=== PATIENT | male | born 1950 | race African-American/Black ===

== ENCOUNTER 2018-12-27 04:48 | Emergency (ER) | payer OTHER, MEDICARE ==
[~2018-12-27] VITALS: Ht 180.3 cm; Wt 95.3 kg
[2018-12-27] MEDS ORDERED: IV NORMAL SALINE 1,000ML 1,000 ML IV SCH (05:15)
[2018-12-27] MEDS ORDERED: PANTOPRAZOLE IV 40 MG VIAL. IVP ONE (05:15)
--- NOTE | 2018-12-27 05:36 | PHYS DOC ---
Adult General Chief Complaint Chief Complaint: BLOODY STOOL HPI HPI Patient is a 68-year-old -[place] gentleman who presents with acute rectal bleeding that started at about 3:00 this morning. indicates that she estimates between 0.5-1 liter blood loss at home, prior to coming to ER. On pres entation to emergency room, patient had syncopal episode in the lobby and was too weak to transfer to [facility]. Patient denies any abdominal pain but does admit some cramping. indicates that patient had similar episode about 10 years ago where he had a diverticular bleed. [] Review of Systems Review of Systems Constitutional: Denies fever or chills [] Respiratory: Denies cough or shortness of breath [] Cardiovascular: No additional information not addressed in HPI [] GI: Complains of heavy rectal bleeding[] Integument: Denies rash or skin lesions [] Neurologic: Positive syncopal episode[] All other systems were reviewed and found to be within normal limits, except as documented in this note. Current Medications Current Medications Current Medications Medications (Trade) Dose Ordered Sig/Monica Start Time Stop Time Status Last Admin Dose Admin Pantoprazole Sodium (Protonix Vial) 40 mg 1X ONCE 12/27/18 05:15 12/27/18 05:21 DC Sodium Chloride 1,000 ml @ 1,000 mls/hr Q1H 12/27/18 05:15 12/27/18 06:14 Allergies Allergies Allergies Coded Allergies Type Severity Reaction Last Updated Verified Unable to Assess 12/27/18 No Physical Exam Physical Exam Constitutional: Lethargic but arousable. [] HENT: Normocephalic, atraumatic, bilateral external ears normal, oropharynx moist, no oral exudates, nose normal. [] Eyes: PERRLA, EOMI, conjunctiva are pale, no discharge. [] Neck: Normal range of motion, no tenderness, supple. [] Cardiovascular:Heart rate regular rhythm [] Lungs & Thorax: Bilateral breath sounds clear to auscultation [] Abdomen: Bowel sounds normal, soft, no tenderness. [] Skin: Warm, dry, no erythema, no rash. [] Extremities: No tenderness, no cyanosis, no clubbing, ROM intact, no edema. [] Neurologic: Lethargic but arousable, able to answer questions, no focal deficits noted. [] EKG EKG [] Radiology/Procedures Radiology/Procedures [] Course & Med Decision Making Course & Med Decision Making Pertinent Labs and Imaging studies reviewed. (See chart for details) Upon arrival to triage, patient had syncopal episode while still in lobby. Patient transferred to room and required 3 person assistance to move to bed. Patient's pants were completely saturated with blood and approximately 200-300 mL of clotted blood had fallen to the floor. An IV was established and blood work drawn. Patient given IV fluid bolus and on-call GI was contacted at [facility]. Patient's case was discussed with Dr. Braxton who is requesting 2 L stat transfusion prior to transport to maintain patient's stability. Dr. Rodriguez, veterans contact representative for hospitalist services, was also contacted and patient will be transferred to [facility] and admitted to the intensive care unit. A total of 35 minutes of critical care time was spent on this patient exclusive of separately billable procedures. Time was inclusive of direct [id number] contact with this patient, ordering and reviewing laboratory studies, discussion of patient's case with family and consultants, and finally on documentation of this patient's medical record. Dragon Disclaimer Dragon Disclaimer This electronic medical record was generated, in whole or in part, using a voice recognition dictation system. Departure Departure: Impression: Primary Impression: Lower GI hemorrhage Disposition: XFER SHT-TRM HOSP Condition: GUARDED Referrals: PCP,NO (PCP) MARCUS ÁLVAREZ Jr. DO Dec 27, 2018 05:36
[2018-12-27] MEDS ORDERED: IV NORMAL SALINE 1,000ML 1,000 ML IV ONE ×2 (06:00→07:30)
--- NOTE | 2018-12-27 06:00 | EKG ---
[address] [address] Test Date: 2018-12-27 Test Time: 05:29:15 Pat Name: SILKE OKEEFE Department: Room: Gender: M Cryptographer: : [id number] Requested By: MARCUS ÁLVAREZ Order Number: [id number] Reading MD: Measurements Intervals [place] Rate: 56 P: 35 VT: 210 QRS: -12 QRSD: 100 T: -170 QT: 462 QTc: 449 Interpretive Statements SINUS RHYTHM LEFTWARD AXIS LVH WITH REPOLARIZATION ABNORMALITY ABNORMAL ECG RI6.01 No previous ECG available for comparison
[2018-12-27 06:15] LABS: BASO # 0.1 x10^3/uL (0.0-0.2); BASO % 1 % (0-3); EOS # 0.4 x10^3/uL (0.0-0.7); EOS % 7 % (0-3); HEMATOCRIT 32.4 % (39.0-53.0); HEMOGLOBIN 10.5 g/dL (13.0-17.5); LYMPH % 51 % (24-48); MEAN CORPUSCULAR HEMOGLOBIN 29 pg (25-35); MEAN CORPUSCULAR HGB CONC 33 g/dL (31-37); MEAN CORPUSCULAR VOLUME 90 fL (79-100); MONO # 0.6 x10^3/uL (0.0-1.1); MONO % 10 % (0-9); NEUT # 1.8 x10^3uL (1.8-7.7); NEUT % 30 % (31-73); PLATELET COUNT 147 x10^3/uL (140-400); RED BLOOD COUNT 3.59 x10^6/uL (4.30-5.70); RED CELL DISTRIBUTION WIDTH 13.5 % (11.5-14.5); WHITE BLOOD COUNT 5.9 x10^3/uL (4.0-11.0)
[2018-12-27 06:27] LABS: ALBUMIN 3.2 g/dL (3.4-5.0); ALBUMIN/GLOBULIN RATIO 0.8 (1.0-1.7); CALCIUM 8.8 mg/dL (8.5-10.1); CREATININE 1.4 mg/dL (0.7-1.3); GFR 60.6; POTASSIUM 3.8 mmol/L (3.5-5.1); TOTAL BILIRUBIN 0.2 mg/dL (0.2-1.0); TOTAL PROTEIN 7.3 g/dL (6.4-8.2)
[2018-12-27 06:41] VITALS: BP 142/88
== END 2018-12-27 06:58 | disposition short-term general hospital (02) ==
LOC: ER 04:48
DX: K92.2 Gastrointestinal hemorrhage, unspecified (principal); R55 Syncope and collapse
CPT/HCPCS: 36415; 36430; 80053; 85025; 85610; 85730; 86850; 86900; 86901; 86920; 93005; 96361; 96374; C9113; P9016; 99291-25; J7030